=== PATIENT | male | born 1950 | race Caucasian/White ===

== ENCOUNTER 2021-06-30 16:06 | Emergency (ER) | payer MEDICARE, BC ==
[~2021-06-30] VITALS: Ht 177.8 cm; Wt 75.0 kg
[2021-06-30 16:15] VITALS: BP 154/83
[2021-06-30 16:44] LABS: BASOPHILS % (AUTO) 0.3 % (0-1); EOSINOPHILS % (AUTO) 0.3 % (0-6); HEMATOCRIT 37.2 % (42.0-52.0); HEMOGLOBIN 12.8 g/dl (14.0-17.9); LYMPHOCYTES # (AUTO) 1.3 X10'3 (1.1-4.8); LYMPHOCYTES % (AUTO) 17.2 % (21-51); MEAN CORPUSCULAR HEMOGLOBIN 31.2 PG (27.0-31.0); MEAN CORPUSCULAR HGB CONC 34.5 g/dL (33.0-36.5); MEAN CORPUSCULAR VOLUME 90.4 FL (78-98); MONOCYTES % (AUTO) 13.3 % (2-12); NEUTROPHILS # (AUTO) 5.2 X10'3 (1.8-7.7); NEUTROPHILS % (AUTO) 68.9 % (42-75); PLATELET COUNT 185 X10'3 (140-440); RED BLOOD COUNT 4.12 X10'6 (4.70-6.10); RED CELL DISTRIBUTION WIDTH 14.6 % (11.5-14.5); WHITE BLOOD COUNT 7.5 X10'3 (4.5-11.0)
[2021-06-30 16:57] LABS: ALANINE AMINOTRANSFERASE 26 U/L (12-78); ALBUMIN 3.7 G/DL (3.4-5.0); ALBUMIN/GLOBULIN RATIO 0.9 (1.1-1.5); ALKALINE PHOSPHATASE 76 IU/L (46-116); ANION GAP 9 (8-16); ASPARTATE AMINO TRANSFERASE 19 U/L (10-37); BILIRUBIN,TOTAL 0.3 MG/DL (0.1-1.0); BLOOD UREA NITROGEN 15 MG/DL (7-18); CALCIUM 9.2 MG/DL (8.5-10.1); CHLORIDE 98 MMOL/L (99-107); CREATININE 1.07 MG/DL (0.60-1.10); GLUCOSE 202 MG/DL (70-104); POTASSIUM 4.1 MMOL/L (3.5-5.1); SODIUM 135 MMOL/L (135-145); TOTAL PROTEIN 7.6 G/DL (6.4-8.2); eGFR 68 ML/MIN
[2021-06-30] MEDS ORDERED: acetaminophen 325mg tablet PO ONE (17:10)
[2021-06-30] MEDS ORDERED: NIRM1TAB PO (18:12)
--- NOTE | 2021-06-30 18:25 | NUR ---
Pt given and understands d/c instructions. Ambulatory with a steady gait.
[2021-07-01] MEDS ORDERED: NIRM1TAB PO ×2 (13:05→18:20)
== END 2021-06-30 18:25 | disposition home or self-care (01) ==
LOC: ER 16:07
DX: U07.1 COVID-19 (principal); R05.9 Cough, unspecified; E11.9 Type 2 diabetes mellitus without complications; Z85.46 Personal history of malignant neoplasm of prostate; Z79.899 Other long term (current) drug therapy
CPT/HCPCS: 36415; 71045; 80053; 85025; 87635; 99284; C9803

== ENCOUNTER 2023-03-30 10:31 | Emergency (ER) | payer MEDICARE, BC ==
[~2023-03-30] VITALS: Ht 177.8 cm; Wt 80.0 kg
[~2023-03-30 10:31] MED LIST: NIRM1TAB PO
[2023-03-30 11:11] LABS: BILIRUBIN,URINE NEGATIVE (Neg); CLARITY,URINE CLEAR (Clear); COLOR,URINE YELLOW (Yellow); GLUCOSE, URINE 250 mg/dl (Neg); KETONES,URINE NEGATIVE (Neg); LEUKOCYTE ESTERASE ,URINE NEGATIVE (Neg); NITRITES, URINE NEGATIVE (Neg); OCCULT BLOOD,URINE NEGATIVE (Neg); PROTEIN,URINE NEGATIVE (Neg); UROBILINOGEN,URINE 0.2 E.U/dL (0.2-1.0)
[2023-03-30 11:17] LABS: UA COLLECTION TYPE CLN CATCH MIDSTREAM
[2023-03-30 12:03] LABS: BASOPHILS % (AUTO) 0.6 % (0-1); EOSINOPHILS # (AUTO) 0.2 X10'3 (0-0.9); EOSINOPHILS % (AUTO) 3.3 % (0-6); HEMATOCRIT 37.8 % (42.0-52.0); HEMOGLOBIN 12.7 g/dl (14.0-17.9); LYMPHOCYTES # (AUTO) 1.1 X10'3 (1.1-4.8); MEAN CORPUSCULAR HEMOGLOBIN 31.1 PG (27.0-31.0); MEAN CORPUSCULAR HGB CONC 33.6 g/dL (33.0-36.5); MEAN CORPUSCULAR VOLUME 92.7 FL (78-98); MEAN PLATELET VOLUME 9.7 FL (7.4-10.4); MONOCYTES # (AUTO) 0.5 X10'3 (0-0.9); MONOCYTES % (AUTO) 9.5 % (2-12); NEUTROPHILS # (AUTO) 3.5 X10'3 (1.8-7.7); NEUTROPHILS % (AUTO) 65.6 % (42-75); PLATELET COUNT 209 X10'3 (140-440); RED BLOOD COUNT 4.08 X10'6 (4.70-6.10); WHITE BLOOD COUNT 5.4 X10'3 (4.5-11.0)
[2023-03-30 12:13] LABS: ALANINE AMINOTRANSFERASE 25 U/L (12-78); ALBUMIN 3.9 G/DL (3.4-5.0); ALBUMIN/GLOBULIN RATIO 1.1 (1.1-1.5); ALKALINE PHOSPHATASE 72 IU/L (46-116); ANION GAP 6 (8-16); ASPARTATE AMINO TRANSFERASE 20 U/L (10-37); BILIRUBIN,TOTAL 0.6 MG/DL (0.1-1.0); BLOOD UREA NITROGEN 13 MG/DL (7-18); CALCIUM 9.5 MG/DL (8.5-10.1); CHLORIDE 96 MMOL/L (99-107); GLUCOSE 215 MG/DL (70-104); POTASSIUM 4.6 MMOL/L (3.5-5.1); SODIUM 131 MMOL/L (135-145); TOTAL PROTEIN 7.6 G/DL (6.4-8.2); eCRCL 69 ML/MIN; eGFR 73 ML/MIN
[2023-03-30 12:24] VITALS: BP 162/85
[2023-03-30] MEDS ORDERED: HYDR-3965 PO (12:44)
[2023-03-30 13:12] VITALS: PULSE 85; RESP 18; O2SAT 99
== END 2023-03-30 13:13 | disposition home or self-care (01) ==
LOC: ER 10:31
DX: M54.59 Other low back pain (principal); Z79.899 Other long term (current) drug therapy
CPT/HCPCS: 36415; 80053; 81003; 85025; 99284

== ENCOUNTER 2023-08-15 12:35 | Emergency (ER) | payer MEDICARE, BC ==
[~2023-08-15] VITALS: Ht 180.3 cm; Wt 77.7 kg
[2023-08-15] MEDS ORDERED: BENZ-38 PO (15:34)
[2023-08-15 15:53] VITALS: BP 148/84; PULSE 80; TEMP 98; O2SAT 97
[2023-08-15 15:54] VITALS: RESP 17
== END 2023-08-15 15:54 | disposition home or self-care (01) ==
LOC: ER 12:35
DX: J06.9 Acute upper respiratory infection, unspecified (principal); Z20.822 Contact with and (suspected) exposure to COVID-19
CPT/HCPCS: 36415; 71045; 87502; 87503; 87811; 99284